=== PATIENT | female | born 1960 | race Caucasian/White ===

== ENCOUNTER → 2018-02-15 | Outpatient (CLI) | payer BC ==
[~2018-02-15] MED LIST: CELEBREX200 MG PO; CYMBALTA60 MG PO; Cymbalta PO; FLOMAX0.4 MG PO; MULTIVITAMIN1 EAC2 PO; NEURONTIN100 MG PO; THERAGRAN1 TABLET PO; VICODIN,LORT1 TABLET PO; Vicodin,Lortab 5/500 PO; ZOFRAN ODT4 MG PO
== END | disposition home or self-care (01) ==
LOC: RAD 13:58
PROC: 3E0R3KZ Introduction of Other Diagnostic Substance into Spinal Canal, Percutaneous Approach (ICD-10-PCS; principal; 2018-02-15)
DX: M48.061 Spinal stenosis, lumbar region without neurogenic claudication (principal); M47.896 Other spondylosis, lumbar region; M43.16 Spondylolisthesis, lumbar region; M25.80 Other specified joint disorders, unspecified joint; R93.7 Abnormal findings on diagnostic imaging of other parts of musculoskeletal system; Z98.890 Other specified postprocedural states; Z86.14 Personal history of Methicillin resistant Staphylococcus aureus infection; M21.379 Foot drop, unspecified foot; R20.9 Unspecified disturbances of skin sensation; M54.16 Radiculopathy, lumbar region; M51.26 Other intervertebral disc displacement, lumbar region; M48.00 Spinal stenosis, site unspecified; M12.88 Other specific arthropathies, not elsewhere classified, other specified site; M43.10 Spondylolisthesis, site unspecified
CPT/HCPCS: 62304; 72110; 72132

== ENCOUNTER → 2018-03-16 | Outpatient (CLI) | payer BC ==
[~2018-03-16] MED LIST changes: +ASPIR 8181 M1 PO; +NEURONTIN300 MG PO; +NEURONTIN800 MG PO
== END | disposition home or self-care (01) ==
LOC: OPR 09:00 → EDSTATUS 09:00 → OPR 09:08
PROC: 0FB03ZX Excision of Liver, Percutaneous Approach, Diagnostic (ICD-10-PCS; principal; 2018-03-16)
DX: R74.8 Abnormal levels of other serum enzymes (principal); Z79.82 Long term (current) use of aspirin; Z88.8 Allergy status to other drugs, medicaments and biological substances
CPT/HCPCS: 77012; 88305